=== PATIENT | female | born 1990 | race Caucasian/White ===

== ENCOUNTER 2018-12-21 07:24 | Inpatient (IN) | payer OTHER ==
[2018-12-21] MEDS ORDERED: Misoprostol 25 MCG (1/4 of 100 MCG) Tab ONE (07:51)
[2018-12-21] MEDS ORDERED: Ondansetron 4 MG/2 ML SDV IVPUSH PRN ×2 (08:01→08:21)
[2018-12-21] MEDS ORDERED: ePHEDrine 50 MG/ML SDV IVPUSH PRN (08:01)
[2018-12-21] MEDS ORDERED: fentaNYL 100 MCG/2 ML SDV EPIDUR PRN (08:01)
--- NOTE | 2018-12-21 08:01 | PCM.LDHP ---
<Jose Madden - Last Filed: 12/21/18 07:54> L&D History of Present Illness - General Date of Service: 12/21/18 Admit Problem/Dx: Admission Diagnosis/Problem Admission Diagnosis/Problem Source of Information: Patient History Limitations: Reports: No Limitations - History of Present Illness Introduction:: EGA: 40W3D LMP: 03/13/18 TEX: 12/18/18 by LMP and 14 week US Chief complaint: Induction 28 yo female, , 40W3D GA, dated by LMP (03/13/2018) and consistent with US at 14 weeks GA, presents to L&D for scheduled induction. She reports presence of movements, denies leakage of fluid, vaginal bleeding, headaches, visual changes, or abdominal pain. care at [facility] ( 11 visits, 1st at 10 weeks GA), uterine size = dates, BP range 90-118/ 52-70. Problem list includes h/o UTI at 36W GA with current and a history of minimal post depression, which didn't require treatment. Patient admitted for observation with a vaginal exam 380/soft/mid-position/ vertex/-1. AROM was performed at 0754 with clear fluid. Initial labs (06/29/18): Blood type B+, Antibody screen negative, HCT/HGB 38%/ 12.8, MCV 86.8, Platelets 201k, Rubella immune, VDRL/RPR nonreactive, urine culture had mixed daily/contaminated, HBsAg negative, HIV negative. 05/24/18: Chlamydia and gonorrhea negative. 11/21/18: GBS negative Patient refused 28 week labs Timing/Duration: Reports: intermittent Location, : Reports: Abdomen Quality: Reports: Dull, Pressure - Related Data Allergies/Adverse Reactions: Allergies Allergy/AdvReac Type Severity Reaction Status Date / Time No Known Allergies Allergy Verified 12/21/18 08:41 Home Medications: Home Meds Pnv No.95/Ferrous Fum/Folic AC [ Multivitamin Tablet] 1 each PO DAILY [History] Past Medical History - Past Health History Medical/Surgical History: Denies Medical/Surgical History Genitourinary History: Reports: UTI, Recurrent, Other (See Below) Other Genitourinary History: gardnerella - treated jul 2015 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 General: Reports: No Symptoms HEENT: Reports: No Symptoms Pulmonary: Reports: No Symptoms Cardiovascular: Reports: No Symptoms Gastrointestinal: Reports: No Symptoms Genitourinary: Reports: No Symptoms Musculoskeletal: Reports: No Symptoms Skin: Reports: No Symptoms Psychiatric: Reports: No Symptoms Neurological: Reports: No Symptoms Hematologic/Lymphatic: Reports: No Symptoms Immunologic: Reports: No Symptoms L&D Exam - Exam Exam: See Below - OB Specific Movement: Active Heart Tones: Present Presentation: Vertex - Bravo Score Bravo Score Cervix Position: Midposition Bravo Score Consistency: Soft Bravo Score Effacement: >80% Bravo Score Dilation: 3-4 cm Bravo Score Infant's Station: -1 ,0 Bravo Score Total: 10 - Exam General: Alert, Oriented HEENT: Conjunctiva Clear, EOMI, Hearing Intact, Mucosa Moist & [place], Pupils Equal, Pupils Reactive Neck: Supple, Trachea Midline Lungs: Clear to Auscultation, Normal Respiratory Effort Cardiovascular: Regular Rate, Regular Rhythm GI/Abdominal Exam: Normal Bowel Sounds, Soft, Non-Tender Genitourinary: Normal external exam, Normal bimanual exam Extremities: Normal Inspection, Normal Range of Motion, Non-Tender, No Pedal Edema, Normal Capillary Refill Skin: Warm, Dry, Intact Psychiatric: Alert, Normal Affect, Normal Mood Problem List Initiated/Reviewed/Updated: Yes <Anthony Benjamin - Last Filed: 12/21/18 12:03> L&D History of Present Illness - General Admit Problem/Dx: Patient Status Order with Admit Dx/Problem 12/21/18 08:22 Patient Status [ADT] Routine Admission Diagnosis/Problem Admission Diagnosis/Problem Term - History of Present Illness Introduction:: Patient seen and examined by me and discussed with student. Severity: Mild Pain Score: 3 Improves with: Reports: None Worsens with: Reports: None Associated Symptoms: Reports: N H&P Review of Systems - Review of Systems: Review Of Systems: See Below General: Reports: No Symptoms HEENT: Reports: No Symptoms Pulmonary: Reports: No Symptoms Cardiovascular: Reports: No Symptoms Gastrointestinal: Reports: No Symptoms Genitourinary: Reports: No Symptoms Musculoskeletal: Reports: No Symptoms Skin: Reports: No Symptoms Psychiatric: Reports: No Symptoms Neurological: Reports: No Symptoms Hematologic/Lymphatic: Reports: No Symptoms Immunologic: Reports: No Symptoms L&D Exam - Exam Exam: See Below - Vital Signs Vital Signs: Last Vital Signs Temp 97.0 F 12/21/18 10:15 Pulse 83 12/21/18 10:15 Resp 16 12/21/18 10:15 BP 129/68 12/21/18 10:15 Pulse Ox 100 12/21/18 10:15 - OB Specific Fundal Height In cm: 39 Contraction Intensity: Mild Movement: Active Heart Tones: Present Heart Tones per Min: 135 Heart Rate (FHR) Variability: Moderate (6-25 bmp) Presentation: Vertex - Bravo Score Bravo Score Cervix Position: Midposition Bravo Score Consistency: Soft Bravo Score Effacement: >80% Bravo Score Dilation: 3-4 cm Bravo Score 's Station: -1 ,0 Bravo Score Total: 10 - Patient Data Lab Results Last 24 hrs: Laboratory Results - last 24 hr 12/21/18 12/21/18 Range/Units 07:45 07:45 WBC 12.81 H (3.98-10.04) K/mm3 RBC 4.26 (3.98-5.22) M/mm3 Hgb 11.8 (11.2-15.7) gm/L Hct 36.8 (34.1-44.9) % MCV 86.4 (79.4-94.8) fl MCH 27.7 (25.6-32.2) pg MCHC 32.1 L (32.2-35.5) g/dl RDW Std Deviation 41.6 (36.4-46.3) fL Plt Count 172 L (182-369) K/mm3 Neut % (Auto) 67.5 (34.0-71.1) % Lymph % (Auto) 21.4 (19.3-51.7) % [place] % (Auto) 8.1 (4.7-12.5) % Eos % (Auto) 2.3 (0.7-5.8) Baso % (Auto) 0.2 (0.1-1.2) % Neut # (Auto) 8.65 H (1.56-6.13) K/mm3 Lymph # (Auto) 2.74 (1.18-3.74) K/mm3 [place] # (Auto) 1.04 H (0.24-0.36) K/mm3 Eos # (Auto) 0.30 (0.04-0.36) K/mm3 Baso # (Auto) 0.02 (0.01-0.08) K/mm3 Manual Slide Review Abnormal smear Blood Type B POSITIVE Gel Antibody Screen Negative Result Diagrams: 12/21/18 07:45 - Problem List (1) 40 weeks gestation of SNOMED Code(s): 24110549 ICD Code: Z3A.40 - 40 WEEKS GESTATION OF Status: Acute Current Visit: Yes Problem List Initiated/Reviewed/Updated: No Orders Last 24hrs: Active Orders 24 hr Category Date Time Status Patient Status [ADT] Routine ADT 12/21/18 08:22 Active Activity as Tolerated [RC] PFP Care 12/21/18 08:21 Active Communication Order [RC] ASDIRECTED Care 12/21/18 08:21 Active Notify Provider [RC] ASDIRECTED Care 12/21/18 08:01 Active Notify Provider [RC] PFP Care 12/21/18 08:21 Active Notify Provider [RC] PRN Care 12/21/18 08:21 Active Peripheral IV Care [RC] Q2HR Care 12/21/18 08:22 Active Pump Management, Intrathecal [RC] ASDIRECTED Care 12/21/18 08:23 Active Urinary Catheter Assessment [RC] ASDIRECTED Care 12/21/18 08:21 Active Vital Signs [RC] PER UNIT ROUTINE Care 12/21/18 08:21 Active Regular Diet [DIET] Diet 12/21/18 Breakfast Active RAPID PLASMA REAGIN,RPR [CHEM] Routine Lab 12/21/18 07:45 Received Bupivacaine/fentaNYL/NS [fentaNYL/Bupivacaine/NS 2 MCG- Med 12/21/18 08:15 Active 0.125% 100 ML] 100 ml EPIDUR ASDIRECTED Calcium Carbonate [Tums] Med 12/21/18 08:21 Active 1,000 mg PO Q2H PRN Lactated Ringers [Ringers, Lactated] 1,000 ml Med 12/21/18 08:30 Active IV ASDIRECTED Lidocaine 1% [Xylocaine 1%] Med 12/21/18 12:00 Once 20 ml INJECT ONETIME ONE Nalbuphine [Nubain] Med 12/21/18 08:21 Active 10 mg IVPUSH Q2H PRN Ondansetron [Zofran] Med 12/21/18 08:01 Active 4 mg IVPUSH ONETIME PRN Ondansetron [Zofran] Med 12/21/18 08:21 Active 4 mg IVPUSH Q4H PRN Oxytocin/Lactated Ringers [Pitocin in LR 10 Units/1,000 Med 12/21/18 08:30 Active ML] 10 unit in 1,000 ml IV TITRATE Oxytocin/Lactated Ringers [Pitocin in LR 20 Units/1,000 Med 12/21/18 08:30 Active ML] 20 unit in 1,000 ml IV ASDIRECTED Sodium Chloride 0.9% [Saline Flush] Med 12/21/18 08:21 Active 10 ml FLUSH ASDIRECTED PRN ePHEDrine [ePHEDrine sulfate] Med 12/21/18 08:01 Active 5 mg IVPUSH ASDIRECTED PRN fentaNYL [Sublimaze] Med 12/21/18 08:01 Active 100 mcg EPIDUR Q3H PRN Electronic Heart Tones Ext w TOCO [WOMSER] Oth 12/21/18 08:21 Ordered Routine Electronic Heart Tones Internal [WOMSER] Per Unit Ot 12/21/18 08:21 Ordered Routine Peripheral IV Insertion Adult [OM.PC] Routine Oth 12/21/18 08:21 Ordered Resuscitation Status Routine Resus Stat 12/21/18 08:21 Ordered Medication Orders Calcium Carbonate/Glycine (Tums) 1,000 mg PO Q2H PRN PRN Reason: Indigestion Ephedrine Sulfate (Ephedrine Sulfate) 5 mg IVPUSH ASDIRECTED PRN PRN Reason: Hypotension Fentanyl (Sublimaze) 100 mcg EPIDUR Q3H PRN PRN Reason: Pain Last Admin: 12/21/18 10:09 Dose: 100 mcg Fentanyl/Bupivacaine HCl (Fentanyl/Bupivacaine/Ns 2 Mcg-0.125% 100 Ml) 100 ml EPIDUR ASDIRECTED ARIES Last Admin: 12/21/18 10:09 Dose: 100 ml Lactated Ringer's (Ringers, Lactated) 1,000 mls @ 100 mls/hr IV ASDIRECTED ARIES Last Admin: 12/21/18 10:58 Dose: 999 mls/hr Infusion: 12/21/18 10:58 Dose: 999 mls/hr Admin: 12/21/18 10:03 Dose: 999 mls/hr Infusion: 12/21/18 10:03 Dose: 999 mls/hr Admin: 12/21/18 09:33 Dose: 999 mls/hr Oxytocin/Lactated Ringer's (Pitocin In Lr 10 Units/1,000 Ml) 10 unit in 1,000 mls @ 12 mls/hr IV TITRATE ARIES; Protocol Oxytocin/Lactated Ringer's (Pitocin In Lr 20 Units/1,000 Ml) 20 unit in 1,000 mls @ 500 mls/hr IV ASDIRECTED ARIES; Protocol Lidocaine HCl (Xylocaine 1%) 20 ml INJECT ONETIME ONE Stop: 12/21/18 12:01 Nalbuphine HCl (Nubain) 10 mg IVPUSH Q2H PRN PRN Reason: pain Ondansetron HCl (Zofran) 4 mg IVPUSH ONETIME PRN PRN Reason: Nausea/Vomiting Ondansetron HCl (Zofran) 4 mg IVPUSH Q4H PRN PRN Reason: Nausea/Vomiting Sodium Chloride (Saline Flush) 10 ml FLUSH ASDIRECTED PRN PRN Reason: Keep Vein Open Assessment/Plan Comment:: Plan induction and delivery Patient seen and examined by me and discussed with student.
--- NOTE | 2018-12-21 08:04 | PCM.PREANE ---
Preanesthetic Assessment - Anesthesia/Transfusion/Family Hx Anesthesia History: Prior Anesthesia Without Reaction (epidural in 2016) Family History of Anesthesia Reaction: No Transfusion History: No Prior Transfusion(s) Intubation History: Unknown - Review of Systems General: No Symptoms Pulmonary: No Symptoms Cardiovascular: No Symptoms Gastrointestinal: No Symptoms Neurological: No Symptoms Other: Reports: None - Physical Assessment NPO Status Date: 12/21/18 NPO Status Time: 07:00 Pulse: 83 O2 Sat by Pulse Oximetry: 100 Respiratory Rate: 16 Blood Pressure: 129/68 Temperature: 36.1 C Height: 1.7 m Weight: 80 kg ASA Class: 2 Mental Status: Alert & Oriented x3 Airway Class: Mallampati = 1 Dentition: Reports: Normal Dentition, Caries Thyro-Mental Finger Breadths: 3 Mouth Opening Finger Breadths: 3 ROM/Head Extension: Full Lungs: Clear to Auscultation, Normal Respiratory Effort Cardiovascular: Regular Rate, Regular Rhythm, No Murmurs - Lab Values: All lab values reviewed and noted and within acceptable ranges to proceed with epidural. - Allergies Allergies/Adverse Reactions: Allergies Allergy/AdvReac Type Severity Reaction Status Date / Time No Known Allergies Allergy Verified 12/21/18 08:41 - Anesthesia Plan Pre-Op Medication Ordered: None - Acknowledgements Anesthesia Type Planned: Epidural Pt an Appropriate Candidate for the Planned Anesthesia: Yes Alternatives and Risks of Anesthesia Discussed w Pt/Guardian: Yes Pt/Guardian Understands and Agrees with Anesthesia Plan: Yes PreAnesthesia Questionnaire - Past Health History Medical/Surgical History: Denies Medical/Surgical History Genitourinary History: Reports: UTI, Recurrent, Other (See Below) Other Genitourinary History: gardnerella - treated jul 2015 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 MEDS Home Medications: Home Meds Pnv No.95/Ferrous Fum/Folic AC [ Multivitamin Tablet] 1 each PO DAILY [History] - CURRENT (IN HOUSE) MEDS Current Meds: Current Medications Ephedrine Sulfate (Ephedrine Sulfate) 5 mg IVPUSH ASDIRECTED PRN PRN Reason: Hypotension Fentanyl (Sublimaze) 100 mcg EPIDUR Q3H PRN PRN Reason: Pain Fentanyl/Bupivacaine HCl (Fentanyl/Bupivacaine/Ns 2 Mcg-0.125% 100 Ml) 100 ml EPIDUR ASDIRECTED ARIES Ondansetron HCl (Zofran) 4 mg IVPUSH ONETIME PRN PRN Reason: Nausea/Vomiting Discontinued Medications Misoprostol (Cytotec) Confirm Administered Dose 50 mcg .ROUTE .[facility] ONE Stop: 12/21/18 07:52
[2018-12-21] MEDS ORDERED: Bupivacaine/fentaNYL/NS 100 ML Bag EPIDUR SCH (08:15)
[2018-12-21] MEDS ORDERED: Calcium Carbonate 500 MG Tab.Chew PO PRN (08:21)
[2018-12-21] MEDS ORDERED: Nalbuphine 20 MG/ML 1 ML Syringe IVPUSH PRN (08:21)
[2018-12-21] MEDS ORDERED: Sodium Chloride 0.9% 10 ML Syringe FLUSH PRN (08:21)
[2018-12-21] MEDS ORDERED: Oxytocin/Lactated Ringers 20 UNIT/1,000 ML BAG IV SCH (08:30)
[2018-12-21] MEDS ORDERED: Oxytocin/Lactated Ringers 10 UNIT/1,000 ML BAG IV SCH (08:30)
[2018-12-21] MEDS: Lactated Ringers 1,000 ML IV SCH ×3 (09:33→10:58)
[2018-12-21] MEDS ORDERED: Lidocaine 1% 50 ML MDV INJECT ONE (12:00)
[2018-12-21] MEDS ORDERED: Bupivacaine 0.25% 10 ML SDV ONE (12:00)
--- NOTE | 2018-12-21 12:06 | PCM.SN ---
- Free Text/Narrative Note: Examination 1145 reveals cervix is 89 centimeters 100% effaced anterior soft and cephalic at 0 station bladder palpated has significant amount of urine, Miller catheter will be placed. Good results with epidural anesthesia.
--- NOTE | 2018-12-21 12:23 | PCM.SN ---
- Free Text/Narrative Note: Cervix rim, 100%, soft, anterior, vertex at +1. Cat I FHR.
--- NOTE | 2018-12-21 13:00 | PCM.DEL ---
L & D Note - General Info Date of Service: 12/21/18 Mother's Due Date: 12/18/18 - Delivery Note Labor: Augmented by ARM Delivery Outcome: Livebirth (Female liveborn 1245 hrs. 12/21/18 weight pending Apgars 8/9 KYLE) Delivery Mode: Spontaneous Presentation: Left Occiput Anterior (KYLE) Nuchal Cord: None Prep: Povidone-Iodine (Betadine Anesthesia Type: Epidural Amniotic Fluid Description: Clear Episiotomy Type: None Laceration: None Placenta: Intact, Spontaneous (Spontaneous 1247 hrs. intact eccentric cord insertion) Cord: 3 Vessels Estimated Blood Loss: 250 Resuscitation Needed: No Provider: Anthony Benjamin Score 1 min: 8 Score 5 min: 9 - General Info Date of Service: 12/21/18 Functional Status: Reports: Pain Controlled - Review of Systems General: Reports: No Symptoms HEENT: Reports: No Symptoms Pulmonary: Reports: No Symptoms Cardiovascular: Reports: No Symptoms Gastrointestinal: Reports: No Symptoms Genitourinary: Reports: No Symptoms Musculoskeletal: Reports: No Symptoms Skin: Reports: No Symptoms Neurological: Reports: No Symptoms Psychiatric: Reports: No Symptoms - Patient Data Vitals - Most Recent: Last Vital Signs Temp 97.0 F 12/21/18 10:15 Pulse 83 12/21/18 10:15 Resp 16 12/21/18 10:15 BP 129/68 12/21/18 10:15 Pulse Ox 100 12/21/18 10:15 Weight - Most Recent: 176 lb 5.917 oz Lab Results Last 24 Hours: Laboratory Results - last 24 hr 12/21/18 12/21/18 Range/Units 07:45 07:45 WBC 12.81 H (3.98-10.04) K/mm3 RBC 4.26 (3.98-5.22) M/mm3 Hgb 11.8 (11.2-15.7) gm/L Hct 36.8 (34.1-44.9) % MCV 86.4 (79.4-94.8) fl MCH 27.7 (25.6-32.2) pg MCHC 32.1 L (32.2-35.5) g/dl RDW Std Deviation 41.6 (36.4-46.3) fL Plt Count 172 L (182-369) K/mm3 Neut % (Auto) 67.5 (34.0-71.1) % Lymph % (Auto) 21.4 (19.3-51.7) % [place] % (Auto) 8.1 (4.7-12.5) % Eos % (Auto) 2.3 (0.7-5.8) Baso % (Auto) 0.2 (0.1-1.2) % Neut # (Auto) 8.65 H (1.56-6.13) K/mm3 Lymph # (Auto) 2.74 (1.18-3.74) K/mm3 [place] # (Auto) 1.04 H (0.24-0.36) K/mm3 Eos # (Auto) 0.30 (0.04-0.36) K/mm3 Baso # (Auto) 0.02 (0.01-0.08) K/mm3 Manual Slide Review Abnormal smear Blood Type B POSITIVE Gel Antibody Screen Negative Med Orders - Current: Current Medications Calcium Carbonate/Glycine (Tums) 1,000 mg PO Q2H PRN PRN Reason: Indigestion Ephedrine Sulfate (Ephedrine Sulfate) 5 mg IVPUSH ASDIRECTED PRN PRN Reason: Hypotension Fentanyl (Sublimaze) 100 mcg EPIDUR Q3H PRN PRN Reason: Pain Last Admin: 12/21/18 10:09 Dose: 100 mcg Fentanyl/Bupivacaine HCl (Fentanyl/Bupivacaine/Ns 2 Mcg-0.125% 100 Ml) 100 ml EPIDUR ASDIRECTED ARIES Last Admin: 12/21/18 10:09 Dose: 100 ml Lactated Ringer's (Ringers, Lactated) 1,000 mls @ 100 mls/hr IV ASDIRECTED ARIES Last Admin: 12/21/18 10:58 Dose: 999 mls/hr Oxytocin/Lactated Ringer's (Pitocin In Lr 10 Units/1,000 Ml) 10 unit in 1,000 mls @ 12 mls/hr IV TITRATE ARIES; Protocol Oxytocin/Lactated Ringer's (Pitocin In Lr 20 Units/1,000 Ml) 20 unit in 1,000 mls @ 500 mls/hr IV ASDIRECTED ARIES; Protocol Last Admin: 12/21/18 12:46 Dose: 999 mls/hr Nalbuphine HCl (Nubain) 10 mg IVPUSH Q2H PRN PRN Reason: pain Ondansetron HCl (Zofran) 4 mg IVPUSH ONETIME PRN PRN Reason: Nausea/Vomiting Ondansetron HCl (Zofran) 4 mg IVPUSH Q4H PRN PRN Reason: Nausea/Vomiting Sodium Chloride (Saline Flush) 10 ml FLUSH ASDIRECTED PRN PRN Reason: Keep Vein Open Discontinued Medications Lidocaine HCl (Xylocaine 1%) 20 ml INJECT ONETIME ONE Stop: 12/21/18 12:01 Misoprostol (Cytotec) Confirm Administered Dose 50 mcg .ROUTE .STK-MED ONE Stop: 12/21/18 07:52 - Exam General: Alert, Oriented HEENT: Pupils Equal, Mucous Membr. Moist/[place] Neck: Supple Lungs: Clear to Auscultation, Normal Respiratory Effort Cardiovascular: Regular Rate, Regular Rhythm GI/Abdominal Exam: Normal Bowel Sounds, Soft, Non-Tender (Female) Exam: Normal External Exam Extremities: Normal Inspection, Normal Range of Motion, Non-Tender, No Pedal Edema, Normal Capillary Refill Skin: Warm, Dry, Intact Psy/Mental Status: Alert, Normal Affect, Normal Mood - Problem List & Annotations (1) 40 weeks gestation of SNOMED Code(s): 16974880 Code(s): Z3A.40 - 40 WEEKS GESTATION OF Status: Acute Current Visit: Yes (2) Normal delivery SNOMED Code(s): 03025212, 419146795 Code(s): O80 - ENCOUNTER FOR FULL-TERM UNCOMPLICATED DELIVERY Status: Acute Current Visit: Yes - Problem List Review Problem List Initiated/Reviewed/Updated: No - My Orders Last 24 Hours: My Active Orders 12/21/18 07:45 RAPID PLASMA REAGIN,RPR [CHEM] Routine 12/21/18 08:21 Activity as Tolerated [RC] PFP Communication Order [RC] ASDIRECTED Notify Provider [RC] PFP Notify Provider [RC] PRN Urinary Catheter Assessment [RC] ASDIRECTED Vital Signs [RC] PER UNIT ROUTINE Calcium Carbonate [Tums] 1,000 mg PO Q2H PRN Nalbuphine [Nubain] 10 mg IVPUSH Q2H PRN Ondansetron [Zofran] 4 mg IVPUSH Q4H PRN Sodium Chloride 0.9% [Saline Flush] 10 ml FLUSH ASDIRECTED PRN Electronic Heart Tones Ext w TOCO [WOMSER] Routine Electronic Heart Tones Internal [WOMSER] Per Unit Routine Peripheral IV Insertion Adult [OM.PC] Routine Resuscitation Status Routine 12/21/18 08:22 Patient Status [ADT] Routine Peripheral IV Care [RC] Q2HR 12/21/18 08:23 Pump Management, Intrathecal [RC] ASDIRECTED 12/21/18 08:30 Lactated Ringers [Ringers, Lactated] 1,000 ml IV ASDIRECTED Oxytocin/Lactated Ringers [Pitocin in LR 10 Units/1,000 ML] 10 unit in 1,000 ml IV TITRATE Oxytocin/Lactated Ringers [Pitocin in LR 20 Units/1,000 ML] 20 unit in 1,000 ml IV ASDIRECTED 12/21/18 Breakfast Regular Diet [DIET] - Assessment Assessment:: Normal delivery - Plan Plan:: Plan induction and delivery Patient seen and examined by me and discussed with student.
[2018-12-21] MEDS ORDERED: Lanolin 100% Cream 7 GM Tube TOP PRN (15:08)
[2018-12-21] MEDS ORDERED: Docusate Sodium 100 MG Cap PO PRN (15:08)
[2018-12-21] MEDS ORDERED: Witch Hazel Medicated Pads 40/Jar TOP PRN (15:08)
[2018-12-21] MEDS ORDERED: Acetaminophen 325 MG Tab PO PRN (15:08)
[2018-12-21] MEDS ORDERED: Benzocaine/Menthol 20%-0.5% Spray 56 GM Canister TOP PRN (15:18)
[2018-12-21] MEDS: Ibuprofen 600 MG Tab PO PRN ×2 (15:22→21:42)
[2018-12-22] MEDS: Ibuprofen 600 MG Tab PO PRN ×2 (03:57→08:32)
--- NOTE | 2018-12-22 07:20 | PCM.DCSUM1 ---
Discharge Summary - Hospital Course Free Text/Narrative:: [facility] LIVE L/D Delivery Note Patient Name: NEISHA RIOS Date of : 89 Patient Status: Inpatient Attending Provider: Anthony Benjamin Date: 12/21/18 12:56 Initialization Date: 12/21/18 12:56 L & D Note - General Info Date of Service: 12/21/18 Mother's Due Date: 12/18/18 - Delivery Note Labor: Augmented by ARM Delivery Outcome: Livebirth (Female liveborn 1245 hrs. 12/21/18 weight pending Apgars 8/9 KYLE) Delivery Mode: Spontaneous Presentation: Left Occiput Anterior (KYLE) Nuchal Cord: None Prep: Povidone-Iodine (Betadine Anesthesia Type: Epidural Amniotic Fluid Description: Clear Episiotomy Type: None Laceration: None Placenta: Intact, Spontaneous (Spontaneous 1247 hrs. intact eccentric cord insertion) Cord: 3 Vessels Estimated Blood Loss: 250 Resuscitation Needed: No Provider: Anthony Benjamin Score 1 min: 8 Score 5 min: 9 - General Info Date of Service: 12/21/18 Functional Status: Reports: Pain Controlled - Review of Systems General: Reports: No Symptoms HEENT: Reports: No Symptoms Pulmonary: Reports: No Symptoms Cardiovascular: Reports: No Symptoms Gastrointestinal: Reports: No Symptoms Genitourinary: Reports: No Symptoms Musculoskeletal: Reports: No Symptoms Skin: Reports: No Symptoms Neurological: Reports: No Symptoms Psychiatric: Reports: No Symptoms - Patient Data Vitals - Most Recent: Last Vital Signs Temp 97.0 F 12/21/18 10:15 Pulse 83 12/21/18 10:15 Resp 16 12/21/18 10:15 BP 129/68 12/21/18 10:15 Pulse Ox 100 12/21/18 10:15 Weight - Most Recent: 176 lb 5.917 oz Lab Results Last 24 Hours: Laboratory Results - last 24 hr 12/21/18 12/21/18 Range/Units 07:45 07:45 WBC 12.81 H (3.98-10.04) K/mm3 RBC 4.26 (3.98-5.22) M/mm3 Hgb 11.8 (11.2-15.7) gm/L Hct 36.8 (34.1-44.9) % MCV 86.4 (79.4-94.8) fl MCH 27.7 (25.6-32.2) pg MCHC 32.1 L (32.2-35.5) g/dl RDW Std Deviation 41.6 (36.4-46.3) fL Plt Count 172 L (182-369) K/mm3 Neut % (Auto) 67.5 (34.0-71.1) % Lymph % (Auto) 21.4 (19.3-51.7) % [place] % (Auto) 8.1 (4.7-12.5) % Eos % (Auto) 2.3 (0.7-5.8) Baso % (Auto) 0.2 (0.1-1.2) % Neut # (Auto) 8.65 H (1.56-6.13) K/mm3 Lymph # (Auto) 2.74 (1.18-3.74) K/mm3 [place] # (Auto) 1.04 H (0.24-0.36) K/mm3 Eos # (Auto) 0.30 (0.04-0.36) K/mm3 Baso # (Auto) 0.02 (0.01-0.08) K/mm3 Manual Slide Review Abnormal smear Blood Type B POSITIVE Gel Antibody Screen Negative Med Orders - Current: Current Medications Calcium Carbonate/Glycine (Tums) 1,000 mg PO Q2H PRN PRN Reason: Indigestion Ephedrine Sulfate (Ephedrine Sulfate) 5 mg IVPUSH ASDIRECTED PRN PRN Reason: Hypotension Fentanyl (Sublimaze) 100 mcg EPIDUR Q3H PRN PRN Reason: Pain Last Admin: 12/21/18 10:09 Dose: 100 mcg Fentanyl/Bupivacaine HCl (Fentanyl/Bupivacaine/Ns 2 Mcg-0.125% 100 Ml) 100 ml EPIDUR ASDIRECTED [facility] Last Admin: 12/21/18 10:09 Dose: 100 ml Lactated Ringer's (Ringers, Lactated) 1,000 mls @ 100 mls/hr IV ASDIRECTED ARIES Last Admin: 12/21/18 10:58 Dose: 999 mls/hr Oxytocin/Lactated Ringer's (Pitocin In Lr 10 Units/1,000 Ml) 10 unit in 1,000 mls @ 12 mls/hr IV TITRATE ARIES; Protocol Oxytocin/Lactated Ringer's (Pitocin In Lr 20 Units/1,000 Ml) 20 unit in 1,000 mls @ 500 mls/hr IV ASDIRECTED ARIES; Protocol Last Admin: 12/21/18 12:46 Dose: 999 mls/hr Nalbuphine HCl (Nubain) 10 mg IVPUSH Q2H PRN PRN Reason: pain Ondansetron HCl (Zofran) 4 mg IVPUSH ONETIME PRN PRN Reason: Nausea/Vomiting Ondansetron HCl (Zofran) 4 mg IVPUSH Q4H PRN PRN Reason: Nausea/Vomiting Sodium Chloride (Saline Flush) 10 ml FLUSH ASDIRECTED PRN PRN Reason: Keep Vein Open Discontinued Medications Lidocaine HCl (Xylocaine 1%) 20 ml INJECT ONETIME ONE Stop: 12/21/18 12:01 Misoprostol (Cytotec) Confirm Administered Dose 50 mcg .ROUTE .STK-MED ONE Stop: 12/21/18 07:52 - Exam General: Alert, Oriented HEENT: Pupils Equal, Mucous Membr. Moist/[place] Neck: Supple Lungs: Clear to Auscultation, Normal Respiratory Effort Cardiovascular: Regular Rate, Regular Rhythm GI/Abdominal Exam: Normal Bowel Sounds, Soft, Non-Tender (Female) Exam: Normal External Exam Extremities: Normal Inspection, Normal Range of Motion, Non-Tender, No Pedal Edema, Normal Capillary Refill Skin: Warm, Dry, Intact Psy/Mental Status: Alert, Normal Affect, Normal Mood - Problem List & Annotations (1) 40 weeks gestation of SNOMED Code(s): 55954476 Code(s): Z3A.40 - 40 WEEKS GESTATION OF Status: Acute Current Visit: Yes (2) Normal delivery SNOMED Code(s): 85100860, 520339672 Code(s): O80 - ENCOUNTER FOR FULL-TERM UNCOMPLICATED DELIVERY Status: Acute Current Visit: Yes - Problem List Review Problem List Initiated/Reviewed/Updated: No - My Orders Last 24 Hours: My Active Orders 12/21/18 07:45 RAPID PLASMA REAGIN,RPR [CHEM] Routine 12/21/18 08:21 Activity as Tolerated [RC] PFP Communication Order [RC] ASDIRECTED Notify Provider [RC] PFP Notify Provider [RC] PRN Urinary Catheter Assessment [RC] ASDIRECTED Vital Signs [RC] PER UNIT ROUTINE Calcium Carbonate [Tums] 1,000 mg PO Q2H PRN Nalbuphine [Nubain] 10 mg IVPUSH Q2H PRN Ondansetron [Zofran] 4 mg IVPUSH Q4H PRN Sodium Chloride 0.9% [Saline Flush] 10 ml FLUSH ASDIRECTED PRN Electronic Heart Tones Ext w TOCO [WOMSER] Routine Electronic Heart Tones Internal [WOMSER] Per Unit Routine Peripheral IV Insertion Adult [OM.PC] Routine Resuscitation Status Routine 12/21/18 08:22 Patient Status [ADT] Routine Peripheral IV Care [RC] Q2HR 12/21/18 08:23 Pump Management, Intrathecal [RC] ASDIRECTED 12/21/18 08:30 Lactated Ringers [Ringers, Lactated] 1,000 ml IV ASDIRECTED Oxytocin/Lactated Ringers [Pitocin in LR 10 Units/1,000 ML] 10 unit in 1,000 ml IV TITRATE Oxytocin/Lactated Ringers [Pitocin in LR 20 Units/1,000 ML] 20 unit in 1,000 ml IV ASDIRECTED 12/21/18 Breakfast Regular Diet [DIET] - Assessment Assessment:: Normal delivery - Plan Plan:: Plan induction and delivery Patient seen and examined by me and discussed with student. HPI Initial Comments: [facility] LIVE L/D Delivery Note Patient Name: NEISHA RIOS Date of : 89 Patient Status: Inpatient Attending Provider: Anthony Benjamin Date: 12/21/18 12:56 Initialization Date: 12/21/18 12:56 L & D Note - General Info Date of Service: 12/21/18 Mother's Due Date: 12/18/18 - Delivery Note Labor: Augmented by ARM Delivery Outcome: Livebirth (Female liveborn 1245 hrs. 12/21/18 weight pending Apgars 8/9 KYLE) Delivery Mode: Spontaneous Presentation: Left Occiput Anterior (KYLE) Nuchal Cord: None Prep: Povidone-Iodine (Betadine Anesthesia Type: Epidural Amniotic Fluid Description: Clear Episiotomy Type: None Laceration: None Placenta: Intact, Spontaneous (Spontaneous 1247 hrs. intact eccentric cord insertion) Cord: 3 Vessels Estimated Blood Loss: 250 Resuscitation Needed: No Provider: Anthony Benjamin Score 1 min: 8 Score 5 min: 9 - General Info Date of Service: 12/21/18 Functional Status: Reports: Pain Controlled - Review of Systems General: Reports: No Symptoms HEENT: Reports: No Symptoms Pulmonary: Reports: No Symptoms Cardiovascular: Reports: No Symptoms Gastrointestinal: Reports: No Symptoms Genitourinary: Reports: No Symptoms Musculoskeletal: Reports: No Symptoms Skin: Reports: No Symptoms Neurological: Reports: No Symptoms Psychiatric: Reports: No Symptoms - Patient Data Vitals - Most Recent: Last Vital Signs Temp 97.0 F 12/21/18 10:15 Pulse 83 12/21/18 10:15 Resp 16 12/21/18 10:15 BP 129/68 12/21/18 10:15 Pulse Ox 100 12/21/18 10:15 Weight - Most Recent: 176 lb 5.917 oz Lab Results Last 24 Hours: Laboratory Results - last 24 hr 12/21/18 12/21/18 Range/Units 07:45 07:45 WBC 12.81 H (3.98-10.04) K/mm3 RBC 4.26 (3.98-5.22) M/mm3 Hgb 11.8 (11.2-15.7) gm/L Hct 36.8 (34.1-44.9) % MCV 86.4 (79.4-94.8) fl MCH 27.7 (25.6-32.2) pg MCHC 32.1 L (32.2-35.5) g/dl RDW Std Deviation 41.6 (36.4-46.3) fL Plt Count 172 L (182-369) K/mm3 Neut % (Auto) 67.5 (34.0-71.1) % Lymph % (Auto) 21.4 (19.3-51.7) % [place] % (Auto) 8.1 (4.7-12.5) % Eos % (Auto) 2.3 (0.7-5.8) Baso % (Auto) 0.2 (0.1-1.2) % Neut # (Auto) 8.65 H (1.56-6.13) K/mm3 Lymph # (Auto) 2.74 (1.18-3.74) K/mm3 [place] # (Auto) 1.04 H (0.24-0.36) K/mm3 Eos # (Auto) 0.30 (0.04-0.36) K/mm3 Baso # (Auto) 0.02 (0.01-0.08) K/mm3 Manual Slide Review Abnormal smear Blood Type B POSITIVE Gel Antibody Screen Negative Med Orders - Current: Current Medications Calcium Carbonate/Glycine (Tums) 1,000 mg PO Q2H PRN PRN Reason: Indigestion Ephedrine Sulfate (Ephedrine Sulfate) 5 mg IVPUSH ASDIRECTED PRN PRN Reason: Hypotension Fentanyl (Sublimaze) 100 mcg EPIDUR Q3H PRN PRN Reason: Pain Last Admin: 12/21/18 10:09 Dose: 100 mcg Fentanyl/Bupivacaine HCl (Fentanyl/Bupivacaine/Ns 2 Mcg-0.125% 100 Ml) 100 ml EPIDUR ASDIRECTED ARIES Last Admin: 12/21/18 10:09 Dose: 100 ml Lactated Ringer's (Ringers, Lactated) 1,000 mls @ 100 mls/hr IV ASDIRECTED ARIES Last Admin: 12/21/18 10:58 Dose: 999 mls/hr Oxytocin/Lactated Ringer's (Pitocin In Lr 10 Units/1,000 Ml) 10 unit in 1,000 mls @ 12 mls/hr IV TITRATE ARIES; Protocol Oxytocin/Lactated Ringer's (Pitocin In Lr 20 Units/1,000 Ml) 20 unit in 1,000 mls @ 500 mls/hr IV ASDIRECTED ARIES; Protocol Last Admin: 12/21/18 12:46 Dose: 999 mls/hr Nalbuphine HCl (Nubain) 10 mg IVPUSH Q2H PRN PRN Reason: pain Ondansetron HCl (Zofran) 4 mg IVPUSH ONETIME PRN PRN Reason: Nausea/Vomiting Ondansetron HCl (Zofran) 4 mg IVPUSH Q4H PRN PRN Reason: Nausea/Vomiting Sodium Chloride (Saline Flush) 10 ml FLUSH ASDIRECTED PRN PRN Reason: Keep Vein Open Discontinued Medications Lidocaine HCl (Xylocaine 1%) 20 ml INJECT ONETIME ONE Stop: 12/21/18 12:01 Misoprostol (Cytotec) Confirm Administered Dose 50 mcg .ROUTE .STK-MED ONE Stop: 12/21/18 07:52 - Exam General: Alert, Oriented HEENT: Pupils Equal, Mucous Membr. Moist/[place] Neck: Supple Lungs: Clear to Auscultation, Normal Respiratory Effort Cardiovascular: Regular Rate, Regular Rhythm GI/Abdominal Exam: Normal Bowel Sounds, Soft, Non-Tender (Female) Exam: Normal External Exam Extremities: Normal Inspection, Normal Range of Motion, Non-Tender, No Pedal Edema, Normal Capillary Refill Skin: Warm, Dry, Intact Psy/Mental Status: Alert, Normal Affect, Normal Mood - Problem List & Annotations (1) 40 weeks gestation of SNOMED Code(s): 59418603 Code(s): Z3A.40 - 40 WEEKS GESTATION OF Status: Acute Current Visit: Yes (2) Normal delivery SNOMED Code(s): 38839156, 548868318 Code(s): O80 - ENCOUNTER FOR FULL-TERM UNCOMPLICATED DELIVERY Status: Acute Current Visit: Yes - Problem List Review Problem List Initiated/Reviewed/Updated: No - My Orders Last 24 Hours: My Active Orders 12/21/18 07:45 RAPID PLASMA REAGIN,RPR [CHEM] Routine 12/21/18 08:21 Activity as Tolerated [RC] PFP Communication Order [RC] ASDIRECTED Notify Provider [RC] PFP Notify Provider [RC] PRN Urinary Catheter Assessment [RC] ASDIRECTED Vital Signs [RC] PER UNIT ROUTINE Calcium Carbonate [Tums] 1,000 mg PO Q2H PRN Nalbuphine [Nubain] 10 mg IVPUSH Q2H PRN Ondansetron [Zofran] 4 mg IVPUSH Q4H PRN Sodium Chloride 0.9% [Saline Flush] 10 ml FLUSH ASDIRECTED PRN Electronic Heart Tones Ext w TOCO [WOMSER] Routine Electronic Heart Tones Internal [WOMSER] Per Unit Routine Peripheral IV Insertion Adult [OM.PC] Routine Resuscitation Status Routine 12/21/18 08:22 Patient Status [ADT] Routine Peripheral IV Care [RC] Q2HR 12/21/18 08:23 Pump Management, Intrathecal [RC] ASDIRECTED 12/21/18 08:30 Lactated Ringers [Ringers, Lactated] 1,000 ml IV ASDIRECTED Oxytocin/Lactated Ringers [Pitocin in LR 10 Units/1,000 ML] 10 unit in 1,000 ml IV TITRATE Oxytocin/Lactated Ringers [Pitocin in LR 20 Units/1,000 ML] 20 unit in 1,000 ml IV ASDIRECTED 12/21/18 Breakfast Regular Diet [DIET] - Assessment Assessment:: Normal delivery - Plan Plan:: Plan induction and delivery Patient seen and examined by me and discussed with student. Brief History: [facility] . L[facility]. [facility]: [id number] Date of : Patient Status: Inpatient. Attending Provider: Anthony Benjamin Number: [id number]. Date: 12/21/18 12:56Initialization Date: 12/21/18 12:56. L & D Note. - General Info. Date of Service: 12/21/18. Mother's Due Date: 12/18/18. - Delivery Note. Labor: Augmented by ARM. Delivery Outcome: Livebirth (Female liveborn 1245 hrs. 12/21/18 weight pending Apgars 8/9 KYLE). Infant Delivery Mode: Spontaneous. Presentation: Left Occiput Anterior (KYLE). Nuchal Cord: None. Prep: Povidone-Iodine (Betadine. Anesthesia Type: Epidural. Amniotic Fluid Description: Clear. Episiotomy Type : None. Laceration: None. Placenta: Intact, Spontaneous (Spontaneous 1247 hrs. intact eccentric cord insertion). Cord: 3 Vessels. Estimated Blood Loss: 250. Resuscitation Needed: No. Provider: Anthony Benjamin. Score 1 min: 8. Score 5 min: 9. - General Info. Date of Service: . Functional Status: Reports: Pain Controlled. - Review of Systems. General : Reports: No Symptoms. HEENT: Reports: No Symptoms. Pulmonary: Reports: No Symptoms. Cardiovascular: Reports: No Symptoms. Gastrointestinal: Reports: No Symptoms. Genitourinary: Reports: No Symptoms. Musculoskeletal: Reports: No Symptoms. Skin: Reports: No Symptoms. Neurological: Reports: No Symptoms. Psychiatric: Reports: No Symptoms. - Patient Data. Vitals - Most Recent: Last Vital Signs. Temp 97.0 F 12/21/18 10:15. Pulse 83 12/21/18 10:15. Resp 16 12/21/18 10:15. BP 129/68 12/21/18 10:15. Pulse Ox 100 12/21/18 10: 15. Weight - Most Recent: 176 lb 5.917 oz. Lab Results Last 24 Hours: Laboratory Results - last 24 hr. 12/21/1904Range/Units. 07:4507:45. WBC 12.81 H (3.98-10.04) K/mm3. RBC 4.26 (3.98-5.22) M/mm3. Hgb 11.8 (11.2- 15.7) gm/L. Hct 36.8 (34.1-44.9) %. MCV 86.4 (79.4-94.8) fl. MCH 27.7 ( 25.6-32.2) pg. MCHC 32.1 L (32.2-35.5) g/dl. RDW Std Deviation 41.6 (36.4- 46.3) fL. Plt Count 172 L (182-369) K/mm3. Neut % (Auto) 67.5 (34.0-71.1) % . Lymph % (Auto) 21.4 (19.3-51.7) %. [place] % (Auto) 8.1 (4.7-12.5) %. Eos % (Auto) 2.3 (0.7-5.8). Baso % (Auto) 0.2 (0.1-1.2) %. Neut # (Auto) 8.65 H ( 1.56-6.13) K/mm3. Lymph # (Auto) 2.74 (1.18-3.74) K/mm3. [place] # (Auto) 1.04 H (0.24-0.36) K/mm3. Eos # (Auto) 0.30 (0.04-0.36) K/mm3. Baso # (Auto) 0.02 (0.01-0.08) K/mm3. Manual Slide Review Abnormal smear. Blood Type B POSITIVE. Gel Antibody Screen Negative. Med Orders - Current: Current Medications. Calcium Carbonate/Glycine (Tums) 1,000 mg PO Q2H PRN. PRN Reason : Indigestion. Ephedrine Sulfate (Ephedrine Sulfate) 5 mg IVPUSH ASDIRECTED PRN. PRN Reason: Hypotension. Fentanyl (Sublimaze) 100 mcg EPIDUR Q3H PRN. PRN Reason: Pain. Last Admin: 12/21/18 10:09 Dose: 100 mcg. Fentanyl/ Bupivacaine HCl (Fentanyl/Bupivacaine/Ns 2 Mcg-0.125% 100 Ml) 100 ml EPIDUR ASDIRECTED ARIES. Last Admin: 12/21/18 10:09 Dose: 100 ml. Lactated Ringer's ( Ringers, Lactated) 1,000 mls @ 100 mls/hr IV ASDIRECTED ARIES. Last Admin: 12/21 10:58 Dose: 999 mls/hr. Oxytocin/Lactated Ringer's (Pitocin In Lr 10 Units /1,000 Ml) 10 unit in 1,000 mls @ 12 mls/hr IV TITRATE ARIES; Protocol. Oxytocin /Lactated Ringer's (Pitocin In Lr 20 Units/1,000 Ml) 20 unit in 1,000 mls @ 500 mls/hr IV ASDIRECTED ARIES; Protocol. Last Admin: 12/21/18 12:46 Dose: 999 mls/hr. Nalbuphine HCl (Nubain) 10 mg IVPUSH Q2H PRN. PRN Reason: pain. Ondansetron HCl (Zofran) 4 mg IVPUSH ONETIME PRN. PRN Reason: Nausea/ Vomiting. Ondansetron HCl (Zofran) 4 mg IVPUSH Q4H PRN. PRN Reason: Nausea/ Vomiting. Sodium Chloride (Saline Flush) 10 ml FLUSH ASDIRECTED PRN. PRN Reason: Keep Vein Open. Discontinued Medications. Lidocaine HCl (Xylocaine 1% ) 20 ml INJECT ONETIME ONE. Stop: 12/21/18 12:01. Misoprostol (Cytotec) Confirm Administered Dose 50 mcg .ROUTE .STK-MED ONE. Stop: 12/21/18 07:52. - Exam. General: Alert, Oriented. HEENT: Pupils Equal, Mucous Membr. Moist/ [place]. Neck: Supple. Lungs: Clear to Auscultation, Normal Respiratory Effort. Cardiovascular: Regular Rate, Regular Rhythm. GI/Abdominal Exam: Normal Bowel Sounds, Soft, Non-Tender. (Female) Exam: Normal External Exam. Extremities : Normal Inspection, Normal Range of Motion, Non-Tender, No Pedal Edema, Normal Capillary Refill. Skin: Warm, Dry, Intact. Psy/Mental Status: Alert, Normal Affect, Normal Mood. - Problem List & Annotations. (1) 40 weeks gestation of . SNOMED Code(s): 65413864. Code(s): Z3A.40 - 40 WEEKS GESTATION OF Status: Acute Current Visit: Yes. (2) Normal delivery. SNOMED Code(s): 27972139, 852325947. Code(s): O80 - ENCOUNTER FOR FULL-TERM UNCOMPLICATED DELIVERY Status: Acute Current Visit: Yes. - Problem List Review. Problem List Initiated/Reviewed/Updated: No. - My Orders. Last 24 Hours: My Active Orders. 12/21/18 07:45. RAPID PLASMA REAGIN,RPR [CHEM] Routine. 12/21/18 08:21. Activity as Tolerated [RC] PFP. Communication Order [RC] ASDIRECTED. Notify Provider [RC] PFP. Notify Provider [RC] PRN. Urinary Catheter Assessment [RC] ASDIRECTED. Vital Signs [RC] PER UNIT ROUTINE. Calcium Carbonate [Tums] 1,000 mg PO Q2H PRN. Nalbuphine [Nubain] 10 mg IVPUSH Q2H PRN. Ondansetron [Zofran] 4 mg IVPUSH Q4H PRN. Sodium Chloride 0.9% [Saline Flush] 10 ml FLUSH ASDIRECTED PRN. Electronic Heart Tones Ext w TOCO [WOMSER] Routine. Electronic Heart Tones Internal [WOMSER] Per Unit Routine. Peripheral IV Insertion Adult [OM.PC] Routine. Resuscitation Status Routine. 12/21/18 08:22. Patient Status [ADT] Routine. Peripheral IV Care [RC] Q2HR. 12/21/18 08:23. Pump Management, Intrathecal [RC ] ASDIRECTED. 12/21/18 08:30. Lactated Ringers [Ringers, Lactated] 1,000 ml IV ASDIRECTED. Oxytocin/Lactated Ringers [Pitocin in LR 10 Units/1,000 ML] 10 unit in 1,000 ml IV TITRATE. Oxytocin/Lactated Ringers [Pitocin in LR 20 Units/ 1,000 ML] 20 unit in 1,000 ml IV ASDIRECTED. 12/21/18 Breakfast. Regular Diet [DIET]. - Assessment. Assessment:: Normal delivery. - Plan. Plan:: Plan induction and delivery. Patient seen and examined by me and discussed with student. Diagnosis: Stroke: No - Discharge Data Discharge Date: 12/22/18 (1330 hrs) Discharge Disposition: Home, Self-Care 01 Condition: Good - Discharge Diagnosis/Problem(s) (1) 40 weeks gestation of SNOMED Code(s): 48625970 ICD Code: Z3A.40 - 40 WEEKS GESTATION OF Status: Acute Current Visit: Yes (2) Normal delivery SNOMED Code(s): 39816070, 721885938 ICD Code: O80 - ENCOUNTER FOR FULL-TERM UNCOMPLICATED DELIVERY Status: Acute Current Visit: Yes - Patient Summary/Data Complications: None Consults: None Hospital Course: Uneventful - Patient Instructions Diet: Usual Diet as Tolerated Driving: Do Not Drive (48 hours) Showering/Bathing: May Shower Notify Provider of: Fever, Increased Pain, Swelling and Redness, Drainage, Nausea and/or Vomiting - Discharge Plan *PRESCRIPTION DRUG MONITORING PROGRAM REVIEWED*: Not Applicable *COPY OF PRESCRIPTION DRUG MONITORING REPORT IN PATIENT FANNY: Not Applicable Home Medications: Home Meds Pnv No.95/Ferrous Fum/Folic AC [ Multivitamin Tablet] 1 each PO DAILY [History] Acetaminophen [Tylenol] 650 mg PO Q6H PRN tablet 12/22/18 [Rx] Benzocaine/Menthol [Dermoplast Pain Relief [place]] 56 gm TOP ASDIRECTED PRN canister 12/22/18 [Rx] Docusate Sodium [Colace] 100 mg PO BID PRN cap 12/22/18 [Rx] Ibuprofen [Motrin] 600 mg PO Q6H PRN tablet 12/22/18 [Rx] Lanolin [Lansinoh HPA] 1 applic TOP ASDIRECTED PRN tube 12/22/18 [Rx] Afshin Letitia [Tucks] 1 pad TOP ASDIRECTED PRN pad 12/22/18 [Rx] Referrals: Anthony Benjamin MD [Primary Care Provider] - (Patient will be make an appointment to see me on 01/02 are 01/09/19) - Discharge Summary/Plan Comment DC Time >30 min.: No - Patient Data Vitals - Most Recent: Last Vital Signs Temp 98.1 F 12/22/18 04:00 Pulse 73 12/22/18 04:00 Resp 14 12/22/18 04:00 BP 104/75 12/22/18 04:00 Pulse Ox 97 12/22/18 04:00 Weight - Most Recent: 176 lb 5.917 oz I&O - Last 24 hours: Intake & Output 12/21/18 12/22/18 12/22/18 22:59 06:59 14:59 Intake Total 4220 Output Total 400 Balance 3820 Lab Results - Last 24 hrs: Laboratory Results - last 24 hr 12/21/18 12/21/18 12/21/18 Range/Units 07:45 07:45 07:45 WBC 12.81 H (3.98-10.04) K/mm3 RBC 4.26 (3.98-5.22) M/mm3 Hgb 11.8 (11.2-15.7) gm/L Hct 36.8 (34.1-44.9) % MCV 86.4 (79.4-94.8) fl MCH 27.7 (25.6-32.2) pg MCHC 32.1 L (32.2-35.5) g/dl RDW Std Deviation 41.6 (36.4-46.3) fL Plt Count 172 L (182-369) K/mm3 MPV (9.4-12.3) fl Neut % (Auto) 67.5 (34.0-71.1) % Lymph % (Auto) 21.4 (19.3-51.7) % [place] % (Auto) 8.1 (4.7-12.5) % Eos % (Auto) 2.3 (0.7-5.8) Baso % (Auto) 0.2 (0.1-1.2) % Neut # (Auto) 8.65 H (1.56-6.13) K/mm3 Lymph # (Auto) 2.74 (1.18-3.74) K/mm3 [place] # (Auto) 1.04 H (0.24-0.36) K/mm3 Eos # (Auto) 0.30 (0.04-0.36) K/mm3 Baso # (Auto) 0.02 (0.01-0.08) K/mm3 Manual Slide Review Abnormal smear RPR Non-reactive (NONREACTIVE) Blood Type B POSITIVE Gel Antibody Screen Negative 12/22/18 Range/Units 05:56 WBC 14.21 H (3.98-10.04) K/mm3 RBC 3.37 L (3.98-5.22) M/mm3 Hgb 9.3 L D (11.2-15.7) gm/L Hct 29.8 L (34.1-44.9) % MCV 88.4 (79.4-94.8) fl MCH 27.6 (25.6-32.2) pg MCHC 31.2 L (32.2-35.5) g/dl RDW Std Deviation 40.9 (36.4-46.3) fL Plt Count 118 L (182-369) K/mm3 MPV 13.6 H (9.4-12.3) fl Neut % (Auto) 65.7 (34.0-71.1) % Lymph % (Auto) 22.2 (19.3-51.7) % [place] % (Auto) 9.7 (4.7-12.5) % Eos % (Auto) 2.0 (0.7-5.8) Baso % (Auto) 0.1 (0.1-1.2) % Neut # (Auto) 9.33 H (1.56-6.13) K/mm3 Lymph # (Auto) 3.16 (1.18-3.74) K/mm3 [place] # (Auto) 1.38 H (0.24-0.36) K/mm3 Eos # (Auto) 0.29 (0.04-0.36) K/mm3 Baso # (Auto) 0.01 (0.01-0.08) K/mm3 Manual Slide Review RPR (NONREACTIVE) Blood Type Gel Antibody Screen Med Orders - Current: Current Medications Acetaminophen (Tylenol) 650 mg PO Q4H PRN PRN Reason: mild pain or fever Benzocaine/Menthol (Dermoplast Pain Relief [place]) 56 gm TOP ASDIRECTED PRN PRN Reason: perineal discomfort Last Admin: 12/21/18 15:24 Dose: 1 can Docusate Sodium (Colace) 100 mg PO BID PRN PRN Reason: Constipation Emollient Ointment (Lansinoh Hpa) 0 gm TOP ASDIRECTED PRN PRN Reason: Sore Nipples Last Admin: 12/21/18 15:22 Dose: 1 tube Ibuprofen (Motrin) 600 mg PO Q4H PRN PRN Reason: Mild pain or fever Last Admin: 12/22/18 03:57 Dose: 600 mg Prenat Multivit/[place]/Iron/Folic Ac ( Plus Iron) 1 each PO DAILY [facility] Afshin Dong (Tucks) 1 pad TOP ASDIRECTED PRN PRN Reason: Perineal Comfort Measure Last Admin: 12/21/18 15:23 Dose: 1 container Discontinued Medications Calcium Carbonate/Glycine (Tums) 1,000 mg PO Q2H PRN PRN Reason: Indigestion Ephedrine Sulfate (Ephedrine Sulfate) 5 mg IVPUSH ASDIRECTED PRN PRN Reason: Hypotension Fentanyl (Sublimaze) 100 mcg EPIDUR Q3H PRN PRN Reason: Pain Last Admin: 12/21/18 10:09 Dose: 100 mcg Fentanyl/Bupivacaine HCl (Fentanyl/Bupivacaine/Ns 2 Mcg-0.125% 100 Ml) 100 ml EPIDUR ASDIRECTED [facility] Last Admin: 12/21/18 10:09 Dose: 100 ml Lactated Ringer's (Ringers, Lactated) 1,000 mls @ 100 mls/hr IV ASDIRECTED [facility] Last Admin: 12/21/18 10:58 Dose: 999 mls/hr Oxytocin/Lactated Ringer's (Pitocin In Lr 10 Units/1,000 Ml) 10 unit in 1,000 mls @ 12 mls/hr IV TITRATE [facility]; Protocol Oxytocin/Lactated Ringer's (Pitocin In Lr 20 Units/1,000 Ml) 20 unit in 1,000 mls @ 500 mls/hr IV ASDIRECTED [facility]; Protocol Last Admin: 12/21/18 12:46 Dose: 999 mls/hr Lidocaine HCl (Xylocaine 1%) 20 ml INJECT ONETIME ONE Stop: 12/21/18 12:01 Last Admin: 12/21/18 17:50 Dose: Not Given Misoprostol (Cytotec) Confirm Administered Dose 50 mcg .ROUTE .K-MED ONE Stop: 12/21/18 07:52 Last Admin: 12/21/18 17:50 Dose: Not Given Nalbuphine HCl (Nubain) 10 mg IVPUSH Q2H PRN PRN Reason: pain Ondansetron HCl (Zofran) 4 mg IVPUSH ONETIME PRN PRN Reason: Nausea/Vomiting Ondansetron HCl (Zofran) 4 mg IVPUSH Q4H PRN PRN Reason: Nausea/Vomiting Sodium Chloride (Saline Flush) 10 ml FLUSH ASDIRECTED PRN PRN Reason: Keep Vein Open
--- NOTE | 2018-12-22 07:51 | PCM48HPAN ---
Post Anesthesia Note - EVALUATION WITHIN 48HRS OF ANESTHETIC Vital Signs in Normal Range: Yes Patient Participated in Evaluation: Yes Respiratory Function Stable: Yes Airway Patent: Yes Cardiovascular Function Stable: Yes Hydration Status Stable: Yes Pain Control Satisfactory: Yes Nausea and Vomiting Control Satisfactory: Yes Mental Status Recovered: Yes Pulse Rate: 73 Resp Rate: 14 Temperature: 36.7 C Blood Pressure: 104/75 - COMMENTS/OBSERVATIONS Free Text/Narrative:: no anesthesia complications noted
[2018-12-22] MEDS ORDERED: Prenatal Multivitamin with Calcium/Folic Acid/Iron Tab PO SCH (09:00)
[2018-12-22 09:05] VITALS: BP 118/78
== END 2018-12-22 14:30 | disposition home or self-care (01) | DRG 807 ==
LOC: JD.OB 07:24 → OBSVTOIN 12:45 → JD.OB 12:46
PROVIDERS: ADMIT Obstetrics & Gynecology; ATTEND Obstetrics & Gynecology
PROC: 10E0XZZ Delivery of Products of Conception, External Approach (ICD-10-PCS; principal; 2018-12-21)
PROC: 10907ZC Drainage of Amniotic Fluid, Therapeutic from Products of Conception, Via Natural or Artificial Opening (ICD-10-PCS; 2018-12-21)
PROC: 3E0S3BZ Introduction of Anesthetic Agent into Epidural Space, Percutaneous Approach (ICD-10-PCS; 2018-12-21)
PROC: 00HU33Z Insertion of Infusion Device into Spinal Canal, Percutaneous Approach (ICD-10-PCS; 2018-12-21)
DX: O48.0 Post-term pregnancy (principal); Z37.0 Single live birth; Z3A.40 40 weeks gestation of pregnancy; Z79.899 Other long term (current) drug therapy
CPT/HCPCS: 36415; 51702; 59025; 59409; 85025; 86592; 86850; 86900; 86901; A9270-GY; J2590; J3010; J3490; J7120

== ENCOUNTER 2021-01-27 00:56 | Inpatient (IN) | payer MEDICAID ==
[2021-01-27] MEDS ORDERED: Sodium Chloride 0.9% 10 ML Syringe FLUSH PRN (01:22)
[2021-01-27] MEDS ORDERED: Nalbuphine 10 MG/1 ML Vial IVPUSH PRN (01:22)
[2021-01-27] MEDS ORDERED: Ondansetron 4 MG/2 ML SDV IVPUSH PRN ×2 (01:22→05:19)
[2021-01-27] MEDS ORDERED: Oxytocin/Lactated Ringers 10 UNIT/1,000 ML BAG IV SCH ×2 (01:30)
[2021-01-27] MEDS: Lactated Ringers 1,000 ML IV SCH ×3 (04:58→07:27)
[2021-01-27] MEDS ORDERED: fentaNYL 100 MCG/2 ML SDV EPIDUR PRN (05:19)
[2021-01-27] MEDS ORDERED: ePHEDrine 50 MG/ML SDV IVPUSH PRN (05:19)
[2021-01-27] MEDS ORDERED: Bupivacaine/fentaNYL/NS 100 ML Bag EPIDUR SCH (05:30)
--- NOTE | 2021-01-27 06:10 | PCM.PREANE ---
Preanesthetic Assessment - Procedure Proposed Procedure: Epidural - Anesthesia/Transfusion/Family Hx Anesthesia History: Prior Anesthesia Without Reaction Family History of Anesthesia Reaction: No Transfusion History: No Prior Transfusion(s) Intubation History: Unknown - Review of Systems General: No Symptoms Pulmonary: No Symptoms Cardiovascular: No Symptoms Gastrointestinal: No Symptoms (GERD on occasion) Neurological: No Symptoms Other: Reports: None - Physical Assessment NPO Status Date: 01/26/21 NPO Status Time: 18:30 Vital Signs: Last Vital Signs Temp 36.3 C 01/27/21 01:10 Pulse 80 01/27/21 01:10 Resp 16 01/27/21 01:10 BP 131/71 01/27/21 01:10 Pulse Ox 99 01/27/21 01:10 Height: 1.7 m Weight: 76.657 kg ASA Class: 2 Mental Status: Alert & Oriented x3 Airway Class: Mallampati = 2 Dentition: Reports: Normal Dentition, [place]aver[place](s), Caries Thyro-Mental Finger Breadths: 3 Mouth Opening Finger Breadths: 3 ROM/Head Extension: Full Lungs: Clear to Auscultation, Normal Respiratory Effort Cardiovascular: Regular Rate, Regular Rhythm, No Murmurs - Lab Values: Laboratory Last Values WBC 11.91 K/mm3 (3.98-10.04) H 01/27/21 01:35 RBC 3.99 M/mm3 (3.98-5.22) 01/27/21 01:35 Hgb 11.1 gm/dl (11.2-15.7) L D 01/27/21 01:35 Hct 34.7 % (34.1-44.9) 01/27/21 01:35 MCV 87.0 fl (79.4-94.8) 01/27/21 01:35 MCH 27.8 pg (25.6-32.2) 01/27/21 01:35 MCHC 32.0 g/dl (32.2-35.5) L 01/27/21 01:35 RDW Std Deviation 41.2 fL (36.4-46.3) 01/27/21 01:35 Plt Count 169 K/mm3 (182-369) L 01/27/21 01:35 MPV 13.7 fl (9.4-12.3) H 01/27/21 01:35 Neut % (Auto) 64.6 % (34.0-71.1) 01/27/21 01:35 Lymph % (Auto) 24.8 % (19.3-51.7) 01/27/21 01:35 Woods % (Auto) 8.5 % (4.7-12.5) 01/27/21 01:35 Eos % (Auto) 1.3 (0.7-5.8) 01/27/21 01:35 Baso % (Auto) 0.2 % (0.1-1.2) 01/27/21 01:35 Neut # (Auto) 7.71 K/mm3 (1.56-6.13) H 01/27/21 01:35 Lymph # (Auto) 2.95 K/mm3 (1.18-3.74) 01/27/21 01:35 Woods # (Auto) 1.01 K/mm3 (0.24-0.36) H 01/27/21 01:35 Eos # (Auto) 0.15 K/mm3 (0.04-0.36) 01/27/21 01:35 Baso # (Auto) 0.02 K/mm3 (0.01-0.08) 01/27/21 01:35 SARS-CoV-2 RNA (JUDI) Negative (NEGATIVE) 01/27/21 01:33 Blood Type B POSITIVE 01/27/21 01:35 Gel Antibody Screen Negative 01/27/21 01:35 Above labs reviewed and noted and within acceptable ranges to proceed with epidural. - Allergies Allergies/Adverse Reactions: Allergies Allergy/AdvReac Type Severity Reaction Status Date / Time No Known Allergies Allergy Verified 12/21/18 08:41 - Anesthesia Plan Pre-Op Medication Ordered: None - Acknowledgements Anesthesia Type Planned: Epidural Pt an Appropriate Candidate for the Planned Anesthesia: Yes Alternatives and Risks of Anesthesia Discussed w Pt/Guardian: Yes Pt/Guardian Understands and Agrees with Anesthesia Plan: Yes PreAnesthesia Questionnaire - Past Health History Medical/Surgical History: Denies Medical/Surgical History Genitourinary History: Reports: UTI, Recurrent, Other (See Below) Other Genitourinary History: gardnerella - treated jul 2015, [facility] 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: Psychiatric History: Reports: Depression, Other (See Below) Other Psychiatric History: depression with first - SUBSTANCE USE Tobacco Use Status *Q: Never Tobacco User Second Hand Smoke Exposure: No Recreational Drug Use History: No - HOME MEDS Home Medications: Home Meds Pnv No.95/Ferrous Fum/Folic AC [ Multivitamin Tablet] 1 each PO DAILY 12/21/18 [History] Acetaminophen [Tylenol] 650 mg PO Q6H PRN tablet 12/22/18 [Rx] metroNIDAZOLE [Metronidazole] 500 mg PO BID 01/27/21 [History] - CURRENT (IN HOUSE) MEDS Current Meds: Current Medications Ephedrine Sulfate (Ephedrine 50 Mg/Ml Sdv) 5 mg IVPUSH ASDIRECTED PRN PRN Reason: Hypotension Fentanyl (Fentanyl 100 Mcg/2 Ml Sdv) 100 mcg EPIDUR Q3H PRN PRN Reason: Pain Fentanyl/Bupivacaine HCl (Bupivacaine/Fentanyl/Ns 100 Ml Bag) 100 ml EPIDUR ASDIRECTED ARIES Oxytocin/Lactated Ringer's (Pitocin In Lr 10 Units/1,000 Ml) 10 unit in 1,000 mls @ 12 mls/hr IV TITRATE ARIES; Protocol Oxytocin/Lactated Ringer's (Pitocin In Lr 10 Units/1,000 Ml) 10 unit in 1,000 mls @ 100 mls/hr IV .CONTINUOUS ARIES Lactated Ringer's (Ringers, Lactated) 1,000 mls @ 100 mls/hr IV ASDIRECTED ARIES Last Admin: 01/27/21 06:01 Dose: 100 mls/hr Documented by: Miscellaneous Medication (Phenylephrine Hcl In 0.9% Nacl 1 Mg/10 Ml Syringe) 0.1 mg IVPUSH Q10M PRN PRN Reason: Hypotension Nalbuphine HCl (Nalbuphine 10 Mg/1 Ml Vial) 10 mg IVPUSH Q2H PRN PRN Reason: Pain Ondansetron HCl (Ondansetron 4 Mg/2 Ml Sdv) 4 mg IVPUSH Q4H PRN PRN Reason: Nausea/Vomiting Ondansetron HCl (Ondansetron 4 Mg/2 Ml Sdv) 4 mg IVPUSH ONETIME PRN PRN Reason: Nausea/Vomiting Sodium Chloride (Sodium Chloride 0.9% 10 Ml Syringe) 10 ml FLUSH ASDIRECTED PRN PRN Reason: Keep Vein Open
--- NOTE | 2021-01-27 09:15 | PCM.LDHP ---
L&D History of Present Illness - General Date of Service: 01/27/21 Admit Problem/Dx: Patient Status Order with Admit Dx/Problem 01/27/21 01:22 Patient Status [ADT] Routine Admission Diagnosis/Problem Admission Diagnosis/Problem 01/27/21 09:07 Macy is a 30-year-old 3 para 2-0-0-2 female a.m. of 01/27/2021 39-4/7 weeks gestational age with an TEX of 01/30/2021 in active labor with advanced ce rvical dilation of 4 cm. Source of Information: Patient History Limitations: Reports: No Limitations - History of Present Illness Introduction:: Macy is a 30-year-old 3 para 2-0-0-2 female a.m. of 01/27/2021 39-4/7 weeks gestational age with an TEX of 01/30/2021 in active labor with advanced cervical dilation of 4 cm. She reports contractions started last evening and progressed to every 2 to 3 minutes. Denies any loss of vaginal fluid prior to coming in to labor and delivery. Minimal brown discharge noted. Baby has been active. heart tones are reassuring and patient is jean carlos every 2 to 4 minutes with moderate intensity. 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 She had usual menarche at approximately age 14. Cycles on a regular monthly basis. Her TEX 01/30/2021 was determined by an early ultrasound. It is supported by 2 other ultrasounds at 19 and 26 weeks gestation. No STIs or abnormal Pap smears noted by the patient. Her previous obstetric experience includes the followin. Female born 10/06/2014 at 38-2/7 weeks gestational age10 hours of la bor7 pounds [facility]. Second delivered on 12/21/2018 at 40-3/7 weeks gestational ageNSVDepidural Emilia James. course: Patient was seen for her first visit at 9-6/7 weeks gestational age. She was seen on a very regular basis. Her weight gain was from 133.8 pounds to 166.4 pounds for approximately 33 pound increase. Her vital signs are stable throughout the course. Her fundal height growth was appropriate. Patient desired epidural in labor delivery. Her group B strep was negative. She declined genetic testing. She plans on breast-feeding. laboratory testing shows blood to be be positive with negative antibody screen. Her hemoglobin is 14.0 g/dL and platelets were 192 on first visit evaluation. Rubella titer shows immunity. RPR is nonreactive. Urine culture was negative. Hepatitis B surface antigen and HIV assays were both negative. Chlamydia and gonorrhea tests were negative. Group B strep screen was negative. Allergies: None Medications: 1. vitamins 1 p.o. daily Past medical history: 1. x2 Family history: Sister with Down syndrome. Mother was 40 years old child was born. Father the baby has 4 sisters with cystic fibrosis. Anesthesia, bleeding, blood clotting problems noted in the family. Social history: Patient is . is Kimani Keating. He is a vbvw-yf-jpuh mom. She is a high school graduate. She lives in [place] with her family. Significance alcohol, drugs or tobacco. Review of systems: In general patient has no complaints. Patient reported contractions upon admission. Baby has been active. Skin: Negative Lungs: No infectious symptoms or shortness of breath Cardiovascular: No chest pain or exercise intolerance Breasts: No lumps, changes in size, pain, dimpling, discharge or axillary or supraclavicular concerns. GI: Negative : Body habitus changes associated with . Musculoskeletal: Negative Neurological: Negative In general the patient is well-developed, well-nourished, pleasant female of stated age in no acute distress. Last evaluation in clinic on 01/21/2021 her blood pressure was 116/72. Weight was 166.4 with a pregravid weight of 133.8 pounds. Height is 5 feet 7. Prepregnancy body mass index is 20.8. heart rate was 130 bpm. Skin is warm dry without lesions. HEENT, neck and back within normal limits. Lungs are clear with good breath sounds in all lung tobin. Cardiovascular exam shows regular and rhythm without murmurs. Breast exam deferred have been done at first visit and found to be normal. Abdomen is gravid. Last fundal height clinic was 38 cmconsistent with dates. Baby in vertex presentation by Kurtis maneuvers. Genital exam upon admission still shows cervix to be 5 cm, 90% effaced, bulging bag hirsch, soft, 2 station and well applied to the cervix. Baby in vertex presentation. Extremities and neurological exam are grossly within normal limits. - Related Data Allergies/Adverse Reactions: Allergies Allergy/AdvReac Type Severity Reaction Status Date / Time No Known Allergies Allergy Verified 12/21/18 08:41 Home Medications: Home Meds Pnv No.95/Ferrous Fum/Folic AC [ Multivitamin Tablet] 1 each PO DAILY 12/21/18 [History] Acetaminophen [Tylenol] 650 mg PO Q6H PRN tablet 12/22/18 [Rx] metroNIDAZOLE [Metronidazole] 500 mg PO BID 01/27/21 [History] Past Medical History - Past Health History Medical/Surgical History: Denies Medical/Surgical History Genitourinary History: Reports: UTI, Recurrent, Other (See Below) Other Genitourinary History: gardnerella - treated jul 2015, BV 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 History: Reports: Psychiatric History: Reports: Depression, Other (See Below) Other Psychiatric History: depression with first Social & Family History - Family History Family Medical History: No Pertinent Family History Respiratory: Reports: Cystic Fibrosis Other Endocrine/Metabolic Family History: [facility] - Tobacco Use Tobacco Use Status *Q: Never Tobacco User Second Hand Smoke Exposure: No - Recreational Drug Use Recreational Drug Use: No H&P Review of Systems - Review of Systems: Review Of Systems: See Below L&D Exam - Exam Exam: See Below - Vital Signs Vital Signs: Last Vital Signs Temp 36.3 C 01/27/21 01:10 Pulse 67 01/27/21 07:00 Resp 16 01/27/21 01:10 BP 113/57 L 01/27/21 07:00 Pulse Ox 99 01/27/21 06:11 Weight: 76.657 kg - Patient Data Lab Results Last 24 hrs: Laboratory Results - last 24 hr 01/27/21 01/27/21 01/27/21 Range/Units 01:33 01:35 01:35 WBC 11.91 H (3.98-10.04) K/mm3 RBC 3.99 (3.98-5.22) M/mm3 Hgb 11.1 L D (11.2-15.7) gm/dl Hct 34.7 (34.1-44.9) % MCV 87.0 (79.4-94.8) fl MCH 27.8 (25.6-32.2) pg MCHC 32.0 L (32.2-35.5) g/dl RDW Std Deviation 41.2 (36.4-46.3) fL Plt Count 169 L (182-369) K/mm3 MPV 13.7 H (9.4-12.3) fl Neut % (Auto) 64.6 (34.0-71.1) % Lymph % (Auto) 24.8 (19.3-51.7) % [place] % (Auto) 8.5 (4.7-12.5) % Eos % (Auto) 1.3 (0.7-5.8) Baso % (Auto) 0.2 (0.1-1.2) % Neut # (Auto) 7.71 H (1.56-6.13) K/mm3 Lymph # (Auto) 2.95 (1.18-3.74) K/mm3 [place] # (Auto) 1.01 H (0.24-0.36) K/mm3 Eos # (Auto) 0.15 (0.04-0.36) K/mm3 Baso # (Auto) 0.02 (0.01-0.08) K/mm3 SARS-CoV-2 RNA (JUDI) Negative (NEGATIVE) Blood Type B POSITIVE Gel Antibody Screen Negative Result Diagrams: 01/27/21 01:35 - Problem List (1) 39 weeks gestation of SNOMED Code(s): 66501820 ICD Code: Z3A.39 - 39 WEEKS GESTATION OF Status: Acute Current Visit: Yes (2) Active labor at term SNOMED Code(s): 27148409 ICD Code: [id number] - Status: Acute Current Visit: Yes Problem List Initiated/Reviewed/Updated: Yes Orders Last 24hrs: Active Orders 24 hr Category Date Time Status Patient Status [ADT] Routine ADT 01/27/21 01:22 Active Activity as Tolerated [RC] PFP Care 01/27/21 01:22 Active Communication Order [RC] ASDIRECTED Care 01/27/21 01:22 Active Heart Tones [RC] ASDIRECTED Care 01/27/21 01:23 Active Notify Provider [RC] ASDIRECTED Care 01/27/21 05:19 Active Notify Provider [RC] PFP Care 01/27/21 01:22 Active Notify Provider [RC] PRN Care 01/27/21 01:22 Active Oxygen Therapy [RC] ASDIRECTED Care 01/27/21 05:19 Active Peripheral IV Care [RC] Q4HR Care 01/27/21 01:23 Active Pulse Oximetry [RC] ASDIRECTED Care 01/27/21 05:19 Active Vital Signs [RC] PER UNIT ROUTINE Care 01/27/21 01:22 Active Regular Diet [DIET] Diet 01/27/21 Breakfast Active HEP C VIRUS AB [REF] Stat Lab 01/27/21 01:35 Received RAPID PLASMA REAGIN,RPR [CHEM] Routine Lab 01/27/21 01:35 Received Bupivacaine/fentaNYL/NS [fentaNYL/Bupivacaine/NS 2 MCG- Med 01/27/21 05:30 Active 0.125% 100 ML] 100 ml EPIDUR ASDIRECTED Lactated Ringers [Ringers, Lactated] 1,000 ml Med 01/27/21 01:30 Active IV ASDIRECTED Nalbuphine [Nubain] Med 01/27/21 01:22 Active 10 mg IVPUSH Q2H PRN Ondansetron [Zofran] Med 01/27/21 05:19 Active 4 mg IVPUSH ONETIME PRN Ondansetron [Zofran] Med 01/27/21 01:22 Active 4 mg IVPUSH Q4H PRN Oxytocin/Lactated Ringers [Pitocin in LR 10 Units/1,000 Med 01/27/21 01:30 Active ML] 10 unit in 1,000 ml IV .CONTINUOUS Oxytocin/Lactated Ringers [Pitocin in LR 10 Units/1,000 Med 01/27/21 01:30 Active ML] 10 unit in 1,000 ml IV TITRATE Phenylephrine HCl In 0.9% NaCl [Phenylephrine 1 MG/10 Med 01/27/21 05:19 Active ML-NS] 0.1 mg IVPUSH Q10M PRN Sodium Chloride 0.9% [Saline Flush] Med 01/27/21 01:22 Active 10 ml FLUSH ASDIRECTED PRN ePHEDrine [ePHEDrine sulfate] Med 01/27/21 05:19 Active 5 mg IVPUSH ASDIRECTED PRN fentaNYL [Sublimaze] Med 01/27/21 05:19 Active 100 mcg EPIDUR Q3H PRN Electronic Heart Tones Ext w TOCO [WOMSER] Oth 01/27/21 01:22 Ordered Routine Electronic Heart Tones Internal [WOMSER] Per Unit Oth 01/27/21 01:22 Ordered Routine Peripheral IV Insertion Adult [OM.PC] Routine Oth 01/27/21 01:22 Ordered Resuscitation Status Routine Resus Stat 01/27/21 01:22 Ordered Medication Orders Ephedrine Sulfate (Ephedrine 50 Mg/Ml Sdv) 5 mg IVPUSH ASDIRECTED PRN PRN Reason: Hypotension Fentanyl (Fentanyl 100 Mcg/2 Ml Sdv) 100 mcg EPIDUR Q3H PRN PRN Reason: Pain Last Admin: 01/27/21 06:03 Dose: 100 mcg Documented by: ASHLEY Fentanyl/Bupivacaine HCl (Bupivacaine/Fentanyl/Ns 100 Ml Bag) 100 ml EPIDUR ASDIRECTED ARIES Last Admin: 01/27/21 06:03 Dose: 100 ml Documented by: ASHLEY Oxytocin/Lactated Ringer's (Pitocin In Lr 10 Units/1,000 Ml) 10 unit in 1,000 mls @ 12 mls/hr IV TITRATE ARIES; Protocol Oxytocin/Lactated Ringer's (Pitocin In Lr 10 Units/1,000 Ml) 10 unit in 1,000 mls @ 100 mls/hr IV .CONTINUOUS ARIES Lactated Ringer's (Ringers, Lactated) 1,000 mls @ 100 mls/hr IV ASDIRECTED ARIES Last Admin: 01/27/21 07:27 Dose: 100 mls/hr Documented by: Infusion: 01/27/21 07:27 Dose: 100 mls/hr Documented by: Admin: 01/27/21 06:01 Dose: 100 mls/hr Documented by: Infusion: 01/27/21 06:01 Dose: 100 mls/hr Documented by: Admin: 01/27/21 04:58 Dose: 100 mls/hr Documented by: ASHLEY Miscellaneous Medication (Phenylephrine Hcl In 0.9% Nacl 1 Mg/10 Ml Syringe) 0.1 mg IVPUSH Q10M PRN PRN Reason: Hypotension Nalbuphine HCl (Nalbuphine 10 Mg/1 Ml Vial) 10 mg IVPUSH Q2H PRN PRN Reason: Pain Ondansetron HCl (Ondansetron 4 Mg/2 Ml Sdv) 4 mg IVPUSH Q4H PRN PRN Reason: Nausea/Vomiting Last Admin: 01/27/21 07:28 Dose: 4 mg Documented by: CHARITO Ondansetron HCl (Ondansetron 4 Mg/2 Ml Sdv) 4 mg IVPUSH ONETIME PRN PRN Reason: Nausea/Vomiting Sodium Chloride (Sodium Chloride 0.9% 10 Ml Syringe) 10 ml FLUSH ASDIRECTED PRN PRN Reason: Keep Vein Open Assessment/Plan Comment:: Assessment: 1. Macy is a 30-year-old 3 para 2-0-0-2 female a.m. of 01/27/2021 39- 4/7 weeks gestational age with an TEX of 01/30/2021 in active labor with advanced cervical dilation of 4 cm upon admission physician cervical check. 2. Group B strep screen negative 3. Relatively low risk 4. Epidural in labor delivery desired 5. Declined genetic testing 6. Plans on breast-feeding 7. Rubella immune. 8. Tdap given on 12/08/2020 Plan: 1. Anticipate 2. Epidural for labor analgesia 3. Admission laboratory testing consisted of CBC, COVID-19 testing, RPR per protocol. 4. Support breast-feeding.
--- NOTE | 2021-01-27 12:01 | PCM.SN.2 ---
- Free Text/Narrative Note: Delivery note: Stage I: Macy is a 30-year-old 3 para 2-0-0-2 female a.m. of 01/27/2021 39-4/7 weeks gestational age with an TEX of 01/30/2021 in active labor with advanced cervical dilation of 4 cm. She began labor on the evening before her admission. Upon admission was jean carlos every 2 to 4 minutes, moderate intensity. She was effaced to 90% with bulging bag hirsch, -2 station, anterior and soft. Baby is cephalic presentation. She underwent epidural for labor analgesia with excellent results. She had AROM with resultant clear amniotic fluid when she is approximately 5 to 6 cm. She progressed steadily to complete cervical dilation spontaneously. Stage II: At 1030 hrs. on 01/27/2021 Macy delivered a viable, hastings, female with Apgars of 8 and 9 and, a weight of 3470 g (7 pounds 10.4 ounces) in a left occiput anterior position. The shoulders were delivered with gentle downward and then upward pressure delivering the anterior and posterior shoulder respectively. The baby then completely delivered and was placed on mom's abdomen. Baby was dried with warm blanket. Cord was allowed to pulsate x2 to 3 minutes. Umbilical cord was then clamped x2 and cut. The umbilical cord had 3 vessels. Cord blood was obtained. Stage III: The placenta delivered at 1033 hrs. in a Cooper presentation, appeared intact and complete and was discarded per patient desire. Estimated blood loss was 100 cc. Patient incurred no lacerations and therefore no suturing was required. Pitocin was started with routine 10 units/L concentration and was run at 500 cc an hour to facilitate increase in uterine tone and decrease likelihood of bleeding. The patient plans to breast-feed. She is in good condition.
[2021-01-27] MEDS ORDERED: Witch Hazel Medicated Pads 40/Jar TOP PRN (13:19)
[2021-01-27] MEDS ORDERED: Benzocaine/Menthol 20%-0.5% Spray 56 GM Canister TOP PRN (13:19)
[2021-01-27] MEDS ORDERED: Acetaminophen 325 MG Tab PO PRN (13:19)
[2021-01-27] MEDS ORDERED: Docusate Sodium 100 MG Cap PO PRN (13:19)
[2021-01-27] MEDS: Ibuprofen 600 MG Tab PO PRN ×2 (13:58→19:41)
[2021-01-27] MEDS ORDERED: Bupivacaine 0.25% 10 ML SDV ONE (15:00)
[2021-01-28] MEDS: Ibuprofen 600 MG Tab PO PRN (06:53)
--- NOTE | 2021-01-28 09:05 | PCM.DCSUM1 ---
Discharge Summary - Hospital Course Diagnosis: Stroke: No - Discharge Data Discharge Date: 01/28/21 Discharge Disposition: Home, Self-Care 01 Condition: Good - Referral to Home Health Primary Care Physician: Gagandeep Portillo MD - Patient Summary/Data Hospital Course: Stage I: Macy is a 30-year-old 3 para 2-0-0-2 female a.m. of 01/27/2021 39-4/7 weeks gestational age with an TEX of 01/30/2021 in active labor with advanced cervical dilation of 4 cm. She began labor on the evening before her admission. Upon admission was jean carlos every 2 to 4 minutes, moderate intensity. She was effaced to 90% with bulging bag hirsch, -2 station, anterior and soft. Baby is cephalic presentation. She underwent epidural for labor analgesia with excellent results. She had AROM with resultant clear amniotic fluid when she is approximately 5 to 6 cm. She progressed steadily to complete cervical dilation spontaneously. Stage II: At 1030 hrs. on 01/27/2021 Macy delivered a viable, hastings, female infant with Apgars of 8 and 9 and, a weight of 3470 g (7 pounds 10.4 ounces) in a left occiput anterior position. The shoulders were delivered with gentle downward and then upward pressure delivering the anterior and posterior shoulder respectively. The baby then completely delivered and was placed on mom's abdomen. Baby was dried with warm blanket. Cord was allowed to pulsate x2 to 3 minutes. Umbilical cord was then clamped x2 and cut. The umbilical cord had 3 vessels. Cord blood was obtained. Stage III: The placenta delivered at 1033 hrs. in a Cooper presentation, appeared intact and complete and was discarded per patient desire. Estimated blood loss was 100 cc. Patient incurred no lacerations and therefore no suturing was required. Pitocin was started with routine 10 units/L concentration and was run at 500 cc an hour to facilitate increase in uterine tone and decrease likelihood of bleeding. The patient plans to breast-feed. She is in good condition. - Patient Instructions Diet: Usual Diet as Tolerated Activity: No Strenuous Activities Activity, Other: pelvic rest Driving: May Drive Today Showering/Bathing: May Shower Notify Provider of: Fever, Increased Pain, Swelling and Redness, Drainage, Nausea and/or Vomiting - Discharge Plan *PRESCRIPTION DRUG MONITORING PROGRAM REVIEWED*: No *COPY OF PRESCRIPTION DRUG MONITORING REPORT IN PATIENT FANNY: No Home Medications: Home Meds Pnv No.95/Ferrous Fum/Folic AC [ Multivitamin Tablet] 1 each PO DAILY 12/21/18 [History] Acetaminophen [Tylenol] 650 mg PO Q6H PRN tablet 12/22/18 [Rx] metroNIDAZOLE [Metronidazole] 500 mg PO BID 01/27/21 [History] Patient Handouts: Care After Vaginal Delivery Referrals: Carlos Benites MD [Physician] - - Discharge Summary/Plan Comment DC Time >30 min.: No - Patient Data Vitals - Most Recent: Last Vital Signs Temp 37.2 C 01/28/21 04:13 Pulse 58 L 01/28/21 04:13 Resp 14 01/28/21 04:13 BP 113/60 01/28/21 04:13 Pulse Ox 97 01/28/21 04:13 Weight - Most Recent: 76.657 kg I&O - Last 24 hours: Intake & Output 01/27/21 01/28/21 01/28/21 22:59 06:59 14:59 Intake Total 0 Balance 0 Lab Results - Last 24 hrs: Laboratory Results - last 24 hr 01/27/21 Range/Units 01:35 RPR Non-reactive (NONREACTIVE) Med Orders - Current: Current Medications Acetaminophen (Acetaminophen 325 Mg Tab) 650 mg PO Q4H PRN PRN Reason: mild pain or fever Benzocaine/Menthol (Benzocaine/Menthol 20%-0.5% Norco 56 Gm Canister) 0 gm TOP ASDIRECTED PRN PRN Reason: Perineal Comfort Measure Docusate Sodium (Docusate Sodium 100 Mg Cap) 100 mg PO BID PRN PRN Reason: Constipation Ibuprofen (Ibuprofen 600 Mg Tab) 600 mg PO Q4H PRN PRN Reason: Mild pain or fever Last Admin: 01/28/21 06:53 Dose: 600 mg Documented by: Afshin Dong (Afshin Dong Medicated Pads 40/Jar) 1 pad TOP ASDIRECTED PRN PRN Reason: Perineal Comfort Measure Discontinued Medications Bupivacaine HCl (Bupivacaine 0.25% 10 Ml Sdv) 10 ml .ROUTE .STK-MED ONE Stop: 01/27/21 15:01 Ephedrine Sulfate (Ephedrine 50 Mg/Ml Sdv) 5 mg IVPUSH ASDIRECTED PRN PRN Reason: Hypotension Fentanyl (Fentanyl 100 Mcg/2 Ml Sdv) 100 mcg EPIDUR Q3H PRN PRN Reason: Pain Last Admin: 01/27/21 06:03 Dose: 100 mcg Documented by: Fentanyl/Bupivacaine HCl (Bupivacaine/Fentanyl/Ns 100 Ml Bag) 100 ml EPIDUR ASDIRECTED ARIES Last Admin: 01/27/21 06:03 Dose: 100 ml Documented by: Oxytocin/Lactated Ringer's (Pitocin In Lr 10 Units/1,000 Ml) 10 unit in 1,000 mls @ 12 mls/hr IV TITRATE ARIES; Protocol Oxytocin/Lactated Ringer's (Pitocin In Lr 10 Units/1,000 Ml) 10 unit in 1,000 mls @ 100 mls/hr IV .CONTINUOUS ARIES Last Infusion: 01/27/21 10:40 Dose: 500 mls/hr Documented by: Lactated Ringer's (Ringers, Lactated) 1,000 mls @ 100 mls/hr IV ASDIRECTED [facility] Last Admin: 01/27/21 07:27 Dose: 100 mls/hr Documented by: Miscellaneous Medication (Phenylephrine Hcl In 0.9% Nacl 1 Mg/10 Ml Syringe) 0.1 mg IVPUSH Q10M PRN PRN Reason: Hypotension Nalbuphine HCl (Nalbuphine 10 Mg/1 Ml Vial) 10 mg IVPUSH Q2H PRN PRN Reason: Pain Ondansetron HCl (Ondansetron 4 Mg/2 Ml Sdv) 4 mg IVPUSH Q4H PRN PRN Reason: Nausea/Vomiting Last Admin: 01/27/21 07:28 Dose: 4 mg Documented by: Ondansetron HCl (Ondansetron 4 Mg/2 Ml Sdv) 4 mg IVPUSH ONETIME PRN PRN Reason: Nausea/Vomiting Sodium Chloride (Sodium Chloride 0.9% 10 Ml Syringe) 10 ml FLUSH ASDIRECTED PRN PRN Reason: Keep Vein Open
--- NOTE | 2021-01-28 09:17 | PCM48HPAN ---
Post Anesthesia Note - EVALUATION WITHIN 48HRS OF ANESTHETIC Vital Signs in Normal Range: Yes Patient Participated in Evaluation: Yes Respiratory Function Stable: Yes Airway Patent: Yes Cardiovascular Function Stable: Yes Hydration Status Stable: Yes Pain Control Satisfactory: Yes Nausea and Vomiting Control Satisfactory: Yes Mental Status Recovered: Yes Vital Signs: Last Vital Signs Temp 37.2 C 01/28/21 04:13 Pulse 58 L 01/28/21 04:13 Resp 14 01/28/21 04:13 BP 113/60 01/28/21 04:13 Pulse Ox 97 01/28/21 04:13
[2021-01-28 12:42] VITALS: BP 117/60; PULSE 60
== END 2021-01-28 11:45 | disposition home or self-care (01) | DRG 807 ==
LOC: JD.OBCHECK 00:56 → JD.OB 01:04 → JD.OBCHECK 01:22 → JD.OB 02:26 → OBSVTOIN 10:30 → JD.OB 10:31
PROVIDERS: ADMIT Obstetrics & Gynecology; ATTEND Obstetrics & Gynecology
PROC: 10E0XZZ Delivery of Products of Conception, External Approach (ICD-10-PCS; principal; 2021-01-27)
PROC: 10907ZC Drainage of Amniotic Fluid, Therapeutic from Products of Conception, Via Natural or Artificial Opening (ICD-10-PCS; 2021-01-27)
PROC: 3E0R3BZ Introduction of Anesthetic Agent into Spinal Canal, Percutaneous Approach (ICD-10-PCS; 2021-01-27)
PROC: 00HU33Z Insertion of Infusion Device into Spinal Canal, Percutaneous Approach (ICD-10-PCS; 2021-01-27)
DX: O80 Encounter for full-term uncomplicated delivery (principal); Z37.0 Single live birth; Z3A.39 39 weeks gestation of pregnancy; Z20.822 Contact with and (suspected) exposure to COVID-19
CPT/HCPCS: 01967; 36415; 51702; 59025; 59409; 85025; 86592; 86803; 86850; 86900; 86901; A9270-GY; J2405; J2590; J3010; J3490; J7120; U0002

== ENCOUNTER 2023-04-28 02:51 | Inpatient (IN) | payer OTHER ==
[~2023-04-28 02:51] MED LIST: Bupivacaine 0.25% 10 ML SDV ONE
[2023-04-28] MEDS ORDERED: Lidocaine 1% 50 ML MDV INJECT ONE (03:01)
[2023-04-28] MEDS ORDERED: Calcium Carbonate 500 MG Tab.Chew PO PRN (03:01)
[2023-04-28] MEDS ORDERED: Nalbuphine HCl 10 MG/ 1ML Amp IVPUSH PRN (03:01)
[2023-04-28] MEDS ORDERED: Ondansetron 4 MG/2 ML SDV IVPUSH PRN (03:01)
[2023-04-28] MEDS ORDERED: Sodium Chloride 0.9% 10 ML Syringe FLUSH PRN (03:01)
[2023-04-28] MEDS ORDERED: Oxytocin/Lactated Ringers 10 UNIT/1,000 ML BAG IV SCH (03:15)
[2023-04-28] MEDS: Lactated Ringers 1,000 ML IV SCH ×2 (03:30→04:59)
[2023-04-28 03:32] LABS: BASOPHILS PERCENT AUTO 0.2 % (0.0-1.0); EOSINOPHILS ABSOLUTE AUTO 0.2 K/mm3 (0.0-0.4); EOSINOPHILS PERCENT AUTO 1.1 % (0.0-6.0); HEMATOCRIT 34.1 % (37.0-47.0); HEMOGLOBIN 10.9 gm/dl (12.0-16.0); IMMATURE GRAN ABSOLUTE AUTO 0.07 K/mm3 (0.00-0.05); IMMATURE GRAN PERCENT AUTO 0.5 % (0.0-0.4); LYMPHOCYTES ABSOLUTE AUTO 3.4 K/mm3 (1.0-4.8); LYMPHOCYTES PERCENT AUTO 22.2 % (24.0-44.0); MEAN CORPUSCULAR VOLUME 87.7 fl (83.0-99.0); MEAN PLATELET VOLUME 13.1 fl (9.4-12.3); MONOCYTES ABSOLUTE AUTO 1.1 K/mm3 (0.0-0.8); NEUTROPHILS ABSOLUTE AUTO 10.7 K/mm3 (1.8-7.7); PLATELET COUNT,PLT 163 K/mm3 (150-400); RED BLOOD CELL COUNT 3.89 M/mm3 (4.10-5.30); WHITE BLOOD CELL COUNT,WBC 15.47 K/mm3 (3.9-11.3)
[2023-04-28] MEDS ORDERED: Bupivacaine/fentaNYL/NS 100 ML Bag EPIDUR PRN (04:43)
[2023-04-28] MEDS ORDERED: ePHEDrine 50 MG/ML SDV IVPUSH PRN (04:43)
[2023-04-28] MEDS ORDERED: diphenhydrAMINE 50 MG/ML SDV IVPUSH PRN (04:43)
[2023-04-28] MEDS ORDERED: fentaNYL 100 MCG/2 ML SDV EPIDUR PRN (04:43)
[2023-04-28 06:07] LABS: SLIDE REVIEW ABNORMAL SMEAR
[2023-04-28] MEDS ORDERED: Sodium Chloride 0.9% 10 ML Syringe FLUSH SCH (09:00)
[2023-04-28] MEDS ORDERED: Benzocaine/Menthol 20%-0.5% Spray 78 GM Cannister TOP PRN (10:32)
[2023-04-28] MEDS ORDERED: Acetaminophen 325 MG Tab PO PRN (10:32)
[2023-04-28] MEDS ORDERED: Witch Hazel Medicated Pads 40/Jar TOP PRN (10:32)
[2023-04-28] MEDS: Ibuprofen 600 MG Tab PO PRN ×3 (11:17→23:57)
[2023-04-29] MEDS: Ibuprofen 600 MG Tab PO PRN (09:32)
[2023-04-29 10:59] VITALS: BP 123/75; PULSE 68
== END 2023-04-29 11:00 | disposition home or self-care (01) | DRG 807 ==
LOC: JD.OBCHECK 02:51 → JD.OB 02:53 → JD.OBCHECK 07:00 → JD.OB 07:28 → OBSVTOIN 08:13 → JD.OB 08:36
PROVIDERS: ADMIT Obstetrics & Gynecology; ATTEND Obstetrics & Gynecology
PROC: 10E0XZZ Delivery of Products of Conception, External Approach (ICD-10-PCS; principal; 2023-04-28)
PROC: 10907ZC Drainage of Amniotic Fluid, Therapeutic from Products of Conception, Via Natural or Artificial Opening (ICD-10-PCS; 2023-04-28)
PROC: 3E0R3BZ Introduction of Anesthetic Agent into Spinal Canal, Percutaneous Approach (ICD-10-PCS; 2023-04-28)
PROC: 00HU33Z Insertion of Infusion Device into Spinal Canal, Percutaneous Approach (ICD-10-PCS; 2023-04-28)
DX: O80 Encounter for full-term uncomplicated delivery (principal); Z37.0 Single live birth; Z3A.39 39 weeks gestation of pregnancy
CPT/HCPCS: 36415; 51702; 59025; 59409; 85025; 86592; A9270-GY; J2300; J2590; J3010; J3490; J7120